=== PATIENT | female | born 1985 | race Two or more races ===

== ENCOUNTER 2019-08-25 04:34 | Inpatient (IN) | payer OTHER ==
[~2019-08-25] VITALS: Ht 167.6 cm; Wt 3.2 kg
[2019-08-25] MEDS ORDERED: PRENATAL TABLE1 EAC1 PO (05:05)
[2019-08-28] MEDS ORDERED: IBUPROFEN800 MG PO (07:00)
== END 2019-08-28 11:53 | disposition home or self-care (01) | DRG 788 ==
LOC: OBS/DEL 04:34 → LDR 06:36 → OBS/DEL 06:36 → OB/GYN 21:44
PROVIDERS: ADMIT Obstetrics & Gynecology; ATTEND Obstetrics & Gynecology
PROC: 4A1HXFZ Monitoring of Products of Conception, Cardiac Rhythm, External Approach (ICD-10-PCS; 2019-08-25)
PROC: 3E033VJ Introduction of Other Hormone into Peripheral Vein, Percutaneous Approach (ICD-10-PCS; 2019-08-25)
PROC: 10D00Z1 Extraction of Products of Conception, Low, Open Approach (ICD-10-PCS; principal; 2019-08-25 21:00)
DX: O62.1 Secondary uterine inertia (principal); O42.02 Full-term premature rupture of membranes, onset of labor within 24 hours of rupture; Z3A.38 38 weeks gestation of pregnancy; Z37.0 Single live birth